=== PATIENT | female | born 1990 | race American Indian/Alaskan Native ===

== ENCOUNTER 2019-01-16 10:11 | Emergency (ER) | payer MEDICAID ==
[2019-01-16 10:17] VITALS: BP 119/57
[2019-01-16 10:48] LABS: Basophils % (Auto) 0.9 % (0.0-1.8); Eosinophils % (Auto) 0.7 % (0.0-4.3); Hematocrit 36.7 % (30.3-42.9); Hemoglobin 11.5 gm/dl (10.1-14.3); Lymphocytes # (Auto) 2.1 K/mm3 (1.2-5.4); Lymphocytes % (Auto) 40.8 % (13.4-35.0); Mean Corpuscular HGB Conc 31 % (30-34); Mean Corpuscular Volume 71 fl (79-97); Monocytes # (Auto) 0.6 K/mm3 (0.0-0.8); Monocytes % (Auto) 12.4 % (0.0-7.3); Platelet Count 253 K/mm3 (140-440); Red Blood Count 5.16 M/mm3 (3.65-5.03); Red Cell Distribution Width 16.9 % (13.2-15.2)
[2019-01-16 10:53] LABS: Bilirubin,Urine NEG (Negative); Blood,Urine NEG (Negative); Color,Urine Yellow (Yellow); Mucus,Urine FEW /HPF; Protein,Urine <15 mg/dL mg/dL (Negative); Urobilinogen,Urine < 2.0 mg/dL (<2.0); WBC,Urine < 1.0 /HPF (0.0-6.0)
[2019-01-16 11:01] LABS: Alanine Aminotransferase 11 units/L (7-56); BUN/Creatinine Ratio 12; Blood Urea Nitrogen 12 mg/dL (7-17); Hemolysis Index 2
[2019-01-16] MEDS ORDERED: PEPCID PO ONE (11:20)
--- NOTE | 2019-01-16 11:21 | Emergency Department Report ---
ED Abdominal Pain HPI - General Chief Complaint: Abdominal Pain Stated Complaint: ABD PAIN/BACK PAIN Time Seen by Provider: 01/16/19 10:46 Source: patient Mode of arrival: Ambulatory Limitations: No Limitations - History of Present Illness Initial Comments: This is a 28-year-old female who presents to ED complaining of generalized abdominal pain that started a week ago. Patient states that last week she had an episode of vinegar and trying to recent water. Patient states that a next day she felt upset stomach and had a vomiting episode. Patient states after that she is felt stomach is been a little off. Patient states she may have had some was episode of vinegar. Patient also states that she's been a bit constipated the past couple of days. Patient states she is eating normally states LMP as 01/04/2019. She denies fevers/chills/nausea vomiting/diarrhea MD Complaint: abdominal pain - Related Data Previous Rx's Medication Instructions Recorded Last Taken Type Dicyclomine [Bentyl] 10 mg PO BID #20 capsule 01/16/19 Unknown Rx Famotidine [Pepcid] 20 mg PO BID #20 tablet 01/16/19 Unknown Rx Allergies Allergy/AdvReac Type Severity Reaction Status Date / Time No Known Allergies Allergy Verified 01/16/19 10:14 ED Review of Systems ROS: Stated complaint: ABD PAIN/BACK PAIN Other details as noted in HPI Comment: All other systems reviewed and negative ED Past Medical Hx - Past Medical History Previous Medical History?: No - Surgical History Past Surgical History?: No - Social History Smoking Status: Never Smoker Substance Use Type: None - Medications Home Medications: Home Medications Medication Instructions Recorded Confirmed Last Taken Type Dicyclomine [Bentyl] 10 mg PO BID #20 capsule 01/16/19 Unknown Rx Famotidine [Pepcid] 20 mg PO BID #20 tablet 01/16/19 Unknown Rx ED Physical Exam - General Limitations: No Limitations General appearance: alert, in no apparent distress - Head Head exam: Present: atraumatic, normocephalic - Eye Eye exam: Present: normal appearance - ENT ENT exam: Present: mucous membranes moist - Neck Neck exam: Present: normal inspection - Respiratory Respiratory exam: Present: normal lung sounds bilaterally. Absent: respiratory distress - Cardiovascular Cardiovascular Exam: Present: regular rate, normal rhythm. Absent: systolic murmur, diastolic murmur, rubs, gallop - GI/Abdominal GI/Abdominal exam: Present: soft, normal bowel sounds. Absent: distended, tenderness, guarding, mass - Extremities Exam Extremities exam: Present: normal inspection, full ROM - Back Exam Back exam: Present: normal inspection, full ROM. Absent: tenderness, CVA tenderness (R), CVA tenderness (L) - Neurological Exam Neurological exam: Present: alert, oriented X3, normal gait - Psychiatric Psychiatric exam: Present: normal affect, normal mood - Skin Skin exam: Present: warm, dry, intact, normal color. Absent: rash ED Course Vital Signs 01/16/19 01/16/19 10:15 11:10 Temperature 98.1 F Pulse Rate 83 Respiratory 19 18 Rate Blood Pressure 119/57 [Left] O2 Sat by Pulse 98 18 L Oximetry ED Medical Decision Making - Lab Data Result diagrams: 01/16/19 10:25 01/16/19 10:25 - Radiology Data Radiology results: report reviewed, image reviewed Fluoro Time In Minutes: ABDOMEN FLAT AND UPRIGHT HISTORY: abd pain COMPARISON: None. TECHNIQUE: Supine and upright radiographs of the abdomen obtained. FINDINGS: Bowel: Nonobstructive bowel pattern. No abnormal air-fluid level. No free intraperitoneal air. Calcifications: No significant abnormal calcifications. Osseous Structures: No significant osseous abnormality. Additional findings: None. IMPRESSION: Negative abdomen. Signer Name: Eduardo Santos MD Signed: 01/16/2019 11:46 AM Workstation Name: [id number] Transcribed By: REF Dictated By: EDUARDO SANTOS MD Electronically Authenticated By: MARIZA - Medical Decision Making This is a 28-year-old female presents with gastritis Discussed with the patient to limit up drinking up side of vinegar vinegar CBC, BMP, urinalysis all performed. Normal limits. Abdominal x-ray shows no acute findings. Discussed with patient to she is hydrated. 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 Vital signs are normal patient is in no acute distress Critical care attestation.: If time is entered above; I have spent that time in minutes in the direct care of this critically ill patient, excluding procedure time. ED Disposition Clinical Impression: Gastritis Disposition: DC-01 TO HOME OR SELFCARE Is pt being admited?: No Does the pt Need Aspirin: No Condition: Stable Instructions: Abdominal Pain (ED), Gastritis (ED) Additional Instructions: Make sure to follow up with the primary care physician as discussed. Take all your medications as you've been prescribed. If you have any worsening symptoms or develop new symptoms please return to ED immediately. Prescriptions: Dicyclomine [Bentyl] 10 mg PO BID #20 capsule Famotidine [Pepcid] 20 mg PO BID #20 tablet Referrals: DIANE LEPE MD [Primary Care Provider] - 3-5 Days [facility] [Provider Group] - 3-5 Days Forms: Work/School Release Form(ED) Time of Disposition: 12:15
[2019-01-16] MEDS ORDERED: BENTYL ONE (11:25)
[2019-01-16] MEDS: BENTYL PO ONE ×2 (11:27→12:07)
--- NOTE | 2019-01-16 11:51 | XRay Report ---
ABDOMEN FLAT AND UPRIGHT HISTORY: abd pain COMPARISON: None. TECHNIQUE: Supine and upright radiographs of the abdomen obtained. FINDINGS: Bowel: Nonobstructive bowel pattern. No abnormal air-fluid level. No free intraperitoneal air. Calcifications: No significant abnormal calcifications. Osseous Structures: No significant osseous abnormality. Additional findings: None. IMPRESSION: Negative abdomen. Signer Name: Eduardo Green MD Signed: 01/16/2019 11:46 AM Workstation Name: [id number]
== END 2019-01-16 12:36 | disposition home or self-care (01) ==
LOC: ED 10:11
DX: K29.70 Gastritis, unspecified, without bleeding (principal); Z79.899 Other long term (current) drug therapy
CPT/HCPCS: 36415; 74019; 80053; 81001; 85025; 99284

== ENCOUNTER 2019-05-08 16:24 | Emergency (ER) | payer MEDICAID, OTHER ==
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
[2019-05-08] MEDS ORDERED: IBUPROFEN 800 MG TAB PO ONE (20:41)
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
[2019-05-08 21:38] VITALS: BP 105/68
== END 2019-05-08 21:37 | disposition home or self-care (01) ==
LOC: ED 16:24
DX: S39.012A Strain of muscle, fascia and tendon of lower back, initial encounter (principal); S16.1XXA Strain of muscle, fascia and tendon at neck level, initial encounter; R51 Headache; V49.49XA Driver injured in collision with other motor vehicles in traffic accident, initial encounter; Y93.89 Activity, other specified; Y92.89 Other specified places as the place of occurrence of the external cause; Y99.8 Other external cause status
CPT/HCPCS: 72040; 72100

== ENCOUNTER 2019-08-01 10:57 | Day surgery (SDC) | payer MEDICAID ==
[2019-08-01] MEDS ORDERED: HYDROmorphone 1 MG/1 ML INJ IV PRN (11:13)
[2019-08-01] MEDS ORDERED: ONDANSETRON 4 MG/2 ML INJ IV PRN (11:13)
--- NOTE | 2019-08-01 11:14 | Anesthesia Day of Surgery ---
Anesthesia Day of Surgery - Day of Surgery Patient Examined: Yes Patient H&P Reviewed: Yes Patient is NPO: Yes
--- NOTE | 2019-08-01 11:20 | Anesthesia Consultation ---
Anesthesia Consult and Med Hx Date of service: 08/01/19 - Airway Anesthetic Teeth Evaluation: Good ROM Head & Neck: Adequate Mental/Hyoid Distance: Adequate Mallampati Class: Class III Intubation Access Assessment: Probably Good - Pre-Operative Health Status ASA Pre-Surgery Classification: ASA1 Proposed Anesthetic Plan: General - Hematic Hx Anemia: Yes (Bleeding x three weeks) Hx Sickle Cell Disease: No
[2019-08-01] MEDS ORDERED: PROPOFOL 200 MG/20 ML VIAL IV ONE (11:57)
[2019-08-01] MEDS ORDERED: HYDROmorphone 1 MG/1 ML INJ ONE (11:57)
[2019-08-01] MEDS ORDERED: ONDANSETRON 4 MG/2 ML INJ ONE ×2 (11:58→13:11)
[2019-08-01] MEDS ORDERED: LIDOCAINE MPF (2%) 20 MG/1 ML VIAL 5 ML ONE (11:58)
[2019-08-01] MEDS ORDERED: ROCURONIUM 50 MG/5 ML INJ IV ONE (11:58)
[2019-08-01] MEDS ORDERED: LACTATED RINGERS 1,000 ML IV SCH (12:00)
[2019-08-01] MEDS ORDERED: MIDAZOLAM 2 MG/2 ML INJ IV NR (12:00)
[2019-08-01] MEDS ORDERED: BUPIVACAINE/PF (0.5%) 5 MG/1 ML 30 ML VIAL INFILTRATI ONE ×2 (12:03→13:37)
[2019-08-01 12:17] LABS: Hematocrit 32.4 % (30.3-42.9); Hemoglobin 10.4 gm/dl (10.1-14.3); Mean Corpuscular HGB Conc 32 % (30-34); Mean Corpuscular Volume 65 fl (79-97); Platelet Count 225 K/mm3 (140-440); Red Blood Count 4.96 M/mm3 (3.65-5.03); Red Cell Distribution Width 20.6 % (13.2-15.2)
--- NOTE | 2019-08-01 12:44 | Short Stay Summary ---
Short Stay Documentation Date of service: 08/01/19 Narrative H&P: 29y/o @ 8 weeks ega with findings of a suspected ectopic . The patient has been experiencing vaginal bleeding and mild pelvic pain. The demonstrates cardiac activity. - History Principal diagnosis: Ectopic Past Medical History: No medical history Past Surgical History: No surgical history Social history: single - Allergies and Medications Current Medications: Allergies No Known Allergies Allergy (Verified 01/16/19 10:14) Home Medications Medication Instructions Recorded Confirmed Last Taken Type No Known Home Medications [No 08/01/19 08/01/19 Unknown History Reported Home Medications] Active Medications Hydromorphone HCl (Dilaudid) 0.5 mg IV Q10MIN PRN PRN Reason: Pain , Severe (7-10) Stop: 08/01/19 23:00 Lactated Ringer's (Lactated Ringers) 1,000 mls @ 125 mls/hr IV DIRECT RAUDEL Midazolam HCl (Versed) 2 mg IV PREOP NR Stop: 08/01/19 23:59 Ondansetron HCl (Zofran) 4 mg IV ONCE PRN PRN Reason: Nausea And Vomiting Stop: 08/01/19 16:00 - Physical exam General appearance: no acute distress Integumentary: no rash HEENT: Atraumatic Lungs: Clear to auscultation Breasts: deferred Heart: Regular rate Gastrointestinal: normal Female Genitourinary: deferred Rectal Exam: deferred - Brief post op/procedure progress note Date of procedure: 08/01/19 Pre-op diagnosis: ectopic Post-op diagnosis: same Procedure: Laparoscopy Right salpingectomy Anesthesia: GETA Surgeon: CECILLE BENTLEY Estimated blood loss: 50-100ml Pathology: list (right fallopian tube and ectopic ) Specimen disposition: to lab Condition: stable - Hospital course Hospital course: The patient was admitted the day of surgery underwent laparoscopy and right salpingectomy. Please see operative note for details of surgery. Postoperative course was uneventful. - Disposition Condition at discharge: Good Disposition: DC-01 TO HOME OR SELFCARE Short Stay Discharge Plan Activity: other (pelvic rest for 1 week) Diet: regular Additional Instructions: NO HEAVY LIFTING. WOUND:OPEN TO AIR, DO NOT RUB OR SCRUB INCISION SITE. PAT DRY. NO SWIMMIMG, NO POOLS OR LAKES. DO NOT SUBMERGE IN WATER. CALL FOR F/U APPT in 1-[address] Beaver. Forms: Outpatient Surgery DC Inst. Prescriptions: Ibuprofen [Motrin] 800 mg PO Q8HR PRN #60 tablet PRN Reason: Pain, Mild (1-3) oxyCODONE /ACETAMINOPHEN [Percocet 5/325] 1 tab PO Q6HR PRN #20 tablet PRN Reason: Pain
[2019-08-01] MEDS ORDERED: dexAMETHasone 20 MG/5 ML VIAL ONE (13:10)
[2019-08-01] MEDS ORDERED: SODIUM CHLORIDE 0.9% IRR 1,500 ML BOTTLE IR ONE (13:38)
[2019-08-01] MEDS ORDERED: LACTATED RINGERS 1,000 ML ONE (13:48)
[2019-08-01] MEDS ORDERED: GLYCOPYRROLATE 0.4 MG/2 ML INJ ONE (14:00)
[2019-08-01] MEDS ORDERED: NEOSTIGMINE 10MG/10 ML INJ MDV ONE (14:00)
--- NOTE | 2019-08-01 14:58 | Operative Report ---
Operative Report Operative Report: Date of surgery: 08/01/2019 Preoperative diagnosis: Right ectopic Postoperative diagnosis: Same as above Procedure: Laparoscopy; right salpingectomy Surgeon: Debi Beaver M.D. Anesthesia: General endotracheal anesthesia Estimated blood loss: 50 mL Findings: Intact right ectopic Pathology: Ectopic and fallopian tube Indication: 29-year-old at 8 weeks gestational age with findings of right ectopic involving the right tube Procedure: The patient was taken to the operating room and given general endotracheal anesthesia without complication. The patient is prepped and draped in a normal sterile fashion. A bivalve speculum was placed in the patient's vagina and a single-tooth tenaculum was placed on the anterior lip of the cervix .A uterine acorn manipulator was placed, and the bivalve speculum was then removed. Attention was then turned to the patient's abdomen where a 5 mm infraumbilical skin incision was then made. A Veress needle was placed and peritoneal entry was verified water-filled syringe. Insufflation of the peritoneal cavity was performed with CO2 gas. A 5 mm trocar was placed and the laparoscope was then inserted. The patient was then placed in Trendelenburg. A 10 mm suprapubic skin incision was then made. Under direct visualization a 10 mm trocar was then placed. General survey of the patient's abdomen revealed enlarged right fallopian tube with findings of an intact ectopic . The left tube and ovary were normal in appearance. An additional 5 mm left lateral trocar was placed under direct visualization. The ectopic was elevated with the grasper. The LigaSure device was used in order to coagulate and transect the mesosalpinx. The right fallopian tube was then excised. An Endo Catch bag was placed through the 10 mm trocar. Secondary to the large size of the ectopic was deemed difficult to remove through the 10 millimeter trocar site therefore once the specimen was placed in the Endo Catch bag the LigaSure device was used in order to bivalve the specimen to decrease the size. A second Endo Catch bag was placed to remove the remaining portion of the specimen. There was no evidence of active bleeding coming from the surgical site after removal of the fallopian tube. The 10 mm fascial defect was closed with 0 Vicryl using the Quique Espinoza device. The 5 mm lateral trocar was removed. The pneumoperitoneum was then released. The 5 mm trocar laparoscope was then removed. The skin incisions were then closed with 4-0 Monocryl. The incisions were injected with quarter percent Marcaine. Dressings were applied to the incision. The vaginal instruments were then removed atraumatically. Then successfully extubated and taken to the recovery room. All sponge laps and needle counts were correct x2.
[2019-08-01 15:07] VITALS: BP 109/59
--- NOTE | 2019-08-01 15:35 | Post Anesthesia Evaluation ---
- Post Anesthesia Evaluation Patient Participated: Yes Airway Patent: Yes Stable Respiratory Function: Yes Nausea/Vomiting: No Temp > 96.8F: Yes Pain Manageable: Yes Adequeate Hydration: Yes Anesthesia Complications: No
== END 2019-08-01 16:10 | disposition home or self-care (01) ==
LOC: OR 10:57
PROVIDERS: ATTEND Obstetrics & Gynecology
DX: O00.90 Unspecified ectopic pregnancy without intrauterine pregnancy (principal); D64.9 Anemia, unspecified; Z79.899 Other long term (current) drug therapy
CPT/HCPCS: 36415; 59151; 85027; 86850; 86900; 86901; 88305; J1100; J1170; J2250; J2405; J2704; J2710; J7120